=== PATIENT | female | born 1965 | race Caucasian/White ===

== ENCOUNTER 2020-03-21 08:46 | Day surgery (SDC) | payer BC, OTHER ==
[2020-03-21] MEDS ORDERED: Lactated Ringers 1,000 ML IV ONE (08:57)
[2020-03-21] MEDS ORDERED: Lactated Ringers 1,000 ML IV SCH (09:00)
[2020-03-21] MEDS ORDERED: DIPRIVAN 200 MG/20 ML IV ONE ×2 (10:35→11:02)
[2020-03-21] MEDS ORDERED: Xylocaine-Mpf 2% 5 Ml Vial ONE (10:35)
--- NOTE | 2020-03-21 12:53 | HP ---
HISTORY: This is a 54 year-old female who has been having significant left upper quadrant pain which has been increasing severity over the past month. It is worse with food. She is not having any GI bleed. She is not having any urinary symptoms. She has no hematuria either. Past medical history diabetes, hypertension, hyperlipidemia. PAST SURGICAL HISTORY: Knee surgery. Hysterectomy. Gallbladder surgery. Ankle surgery. MEDICATIONS: Lisinopril, Ozempic, occasional naproxen, Crestor, Metformin, insulin pump. ALLERGIES: PENICILLIN (HIVES). FAMILY HISTORY: Diabetes. SOCIAL HISTORY: No tobacco. No alcohol use PHYSICAL EXAMINATION: GENERAL: No acute distress. CVS: Regular rate and rhythm. PULMONARY: Nonlabored. ABDOMEN: Soft, mild tenderness to palpation left upper quadrant. No rebound. No guarding. EXTREMITIES: Normal. DIAGNOSIS: Left upper quadrant abdominal pain. PLAN: EGD.
--- NOTE | 2020-03-21 13:06 | OP ---
PROCEDURE DATE/TIME: 03/21/2020 1040 PREOPERATIVE DIAGNOSIS: Left upper quadrant abdominal pain. POSTOPERATIVE DIAGNOSIS: Gastritis. PROCEDURE: EGD with biopsy. PROCEDURE PERFORMED BY: Jhoana Shook M.D. ESTIMATED BLOOD LOSS: Minimal. ANESTHESIA: MAC. ESTIMATED BLOOD LOSS: Minimal. COMPLICATIONS: None. SPECIMEN: Antral biopsy. INDICATIONS FOR PROCEDURE: This is a patient who presents for EGD due to left upper quadrant abdominal pain. Risks, benefits, alternatives discussed with her preoperatively. Written H&P as well as dictated H&P and consent reviewed and confirmed. DESCRIPTION OF PROCEDURE: The patient was placed in the left lateral decubitus position. A complete time out was performed. The scope gently introduced into the mouth, oropharynx, down to the esophagus, stomach and duodenum. The duodenum was normal. The stomach had some edema most significant in the upper stomach as well as in the antrum. She also had some mild gastritis changes with erythema in the antrum. A possible old ulcer site was identified in the antrum which was completely healed and there was only a slight crater here consistent with a healed ulcer although this was extremely minimal. I did not see any active ulcers. There were no severe gastritis. I retroflexed although retroflexing due to the patient's stomach shape is very difficult. I was able to visualize a significant portion of the stomach. There was no obvious hiatal hernia. I was able to visualize the cardia but again the view here was slightly limited due to the very thick prominent folds and how the stomach was folded here made it difficult to view in each crevice but I did not see anything concerning here. Everything looked healthy. There were just prominent folds on itself. The scope was then unretroflexed. We took an antral biopsy to rule out Helicobacter pylori. The site looked hemostatic. We then carefully withdrew the scope. The hiatus was okay. There were no significant reflux changes. The remainder of the esophagus looked normal. The scope was completely withdrawn. The patient tolerated the procedure very well and no immediate complications. At this time I am going to place on some Protonix to treat her gastritis this may be the source of the left upper quadrant abdominal pain. However due to the severity of her pain I think we should get an upper GI and small bowel follow through and see if this will further define any other source of her pain because I do not think the EGD alone is explaining this. If this is negative then will consider a CT scan.
[2020-03-21 13:47] VITALS: BP 125/80; PULSE 70; O2SAT 97
== END 2020-03-21 12:35 | disposition home or self-care (01) ==
LOC: SDC 08:46
PROVIDERS: ATTEND Surgery
DX: K29.70 Gastritis, unspecified, without bleeding (principal); E11.9 Type 2 diabetes mellitus without complications; Z79.899 Other long term (current) drug therapy; Z79.4 Long term (current) use of insulin
CPT/HCPCS: 82947; J2704

== ENCOUNTER 2020-06-20 09:55 | Day surgery (SDC) | payer OTHER ==
[~2020-06-20 09:55] MED LIST: Lactated Ringers 1,000 ML IV ONE; Lactated Ringers 1,000 ML IV SCH
[2020-06-20] MEDS ORDERED: DIPRIVAN 200 MG/20 ML IV ONE ×2 (12:04→12:29)
[2020-06-20] MEDS ORDERED: Versed 2 MG/2 ML Injection ONE (12:04)
[2020-06-20] MEDS ORDERED: Lactated Ringers 1,000 ML IV ONE (12:38)
[2020-06-20 13:22] VITALS: O2SAT 96
[2020-06-20 13:32] VITALS: PULSE 66
[2020-06-20 13:48] VITALS: BP 126/76
--- NOTE | 2020-06-20 13:57 | HP ---
HISTORY OF PRESENT ILLNESS: The patient is here for colonoscopy. The patient has had left sided abdominal pain. She has had EGD and CT scan but continues to have some pain this is in the mid and lower left abdomen currently. PAST MEDICAL/SURGICAL HISTORY: As written and include hysterectomy, cholecystectomy, joint surgery, diabetes. She has a diabetes monitor in. MEDICATIONS: Medications and allergies are all reviewed and the medicines are read on the chart and confirmed. ALLERGIES: PENICILLIN. PHYSICAL EXAMINATION: GENERAL: No acute distress. CVS: Regular rate and rhythm. LUNGS: Nonlabored. ABDOMEN: Soft, mild tenderness to palpation left mid abdomen. No rebound. No guarding. Nondistended. EXTREMITIES: Normal. Left arm glucose monitor. DIAGNOSIS: Abdominal pain, diarrhea, constipation. PLAN: Colonoscopy.
[2020-06-20 14:50] LABS: 027 TOX PROD PRESUMPTIVE NEGATIVE (NEGATIVE); TOXIGENIC C. DIFF ORG NEGATIVE (NEGATIVE)
--- NOTE | 2020-06-20 14:51 | OP ---
PROCEDURE DATE/TIME: 06/20/2020 1205 PREOPERATIVE DIAGNOSIS: Left mid and left lower quadrant abdominal pain. POSTOPERATIVE DIAGNOSIS: Left mid and left lower quadrant abdominal pain plus pinpoint rectosigmoid inflammation and benign anal tag. PROCEDURE: Colonoscopy with cold biopsies and stool trap collection. PROCEDURE PERFORMED BY: Jhoana Shook M.D. SPECIMENS: 1) Right colon, left colon and rectum random biopsies; rule out microscopic colitis. 2) Pinpoint inflammation rectosigmoid biopsy. COMPLICATIONS: None. ESTIMATED BLOOD LOSS: None. ANESTHESIA: MAC. HISTORY: This is a 54 year-old female who presents for colonoscopy due to abdominal pain. Her pain is more in her left mid and left lower abdomen. She is also having diarrhea and constipation. Risks, benefits, alternatives have been discussed colonoscopy. Her consent has been obtained. H&P completed personally with the patient. DESCRIPTION OF PROCEDURE: She was brought to the endoscopy suite and laid in left lateral decubitus position. A complete time out performed. First a rectal exam was done. The patient has a very benign appearing small anal tag. The scope was then inserted, carefully advanced to the level of the cecum. The prep was satisfactory after copious irrigation. The patient did have quite a bit of thin and thick liquid stool as well as a couple solid particulate matter. We were however able to irrigate thoroughly and I did feel that the visualization was satisfactory and for purpose of the screening I think a five year surveillance would be reasonable given her prep. As we carefully withdrew, I insured visualization of the appendiceal orifice, the ileocecal valve. Her cecum was normal. Her right colon, transverse colon, left colon and sigmoid colon all were normal. I did take a stool trap sample and sent this for stool culture, Clostridium difficile, ova and parasite and then I also took biopsies with cold forceps in the right colon, left colon and in the rectum to rule out microscopic colitis. I did not see any diverticula. In the rectosigmoid region at approximately 15 cm, there was one solitary pinpoint area of inflammation this seems insignificant. I do not think this is the cause of her pain. I did biopsy this however and sent it to pathology of her pinpoint rectosigmoid inflammation. All biopsies were hemostatic. We then carefully withdrew the scope. The rectum was visualized and was normal. She has normal appearing hemorrhoidal tissue. On retroflex view this is normal and as we withdraw we do see the benign appearing anal tag and this is not concerning. Plan for another colonoscopy in five years. She will also follow up with me for her biopsy results in my office.
== END 2020-06-20 14:02 | disposition home or self-care (01) ==
LOC: SDC 09:55
PROVIDERS: ATTEND Surgery
DX: R10.32 Left lower quadrant pain (principal); K63.89 Other specified diseases of intestine; R19.7 Diarrhea, unspecified; K59.00 Constipation, unspecified; K64.4 Residual hemorrhoidal skin tags; E11.9 Type 2 diabetes mellitus without complications
CPT/HCPCS: 82947; 87045; 87046; 87328; 87329; 87493; J2250; J2704

== ENCOUNTER 2021-05-22 10:09 | Day surgery (SDC) | payer OTHER ==
[2021-05-22] MEDS ORDERED: Lactated Ringers 1,000 ML IV SCH (10:30)
[2021-05-22] MEDS ORDERED: Lactated Ringers 1,000 ML IV ONE (10:34)
[2021-05-22] MEDS ORDERED: DIPRIVAN 200 MG/20 ML IV ONE (11:21)
[2021-05-22] MEDS ORDERED: Xylocaine-Mpf 2% 5 Ml Vial ONE (11:21)
[2021-05-22] MEDS ORDERED: Versed 2 MG/2 ML Injection ONE (11:21)
[2021-05-22] MEDS ORDERED: Zofran 4 MG/2 ML VIAL IV STA (12:25)
--- NOTE | 2021-05-22 12:56 | OP ---
PROCEDURE DATE/TIME: 05/22/2021 1123 PREOPERATIVE DIAGNOSIS: Left upper quadrant left flank pain. POSTOPERATIVE DIAGNOSES: 1) Left upper quadrant left flank pain. 2) Mild gastroesophageal reflux disease. 3) Small hiatal hernia, stable. 4) Normal stomach. 5) Pallor of the duodenal mucosa. PROCEDURE: EGD with biopsies. PROCEDURE PERFORMED BY: Jhoana Shook M.D. ESTIMATED BLOOD LOSS: Minimal. ANESTHESIA: MAC. COMPLICATIONS: None. SPECIMEN: 1) Gastric antral biopsy; rule out Helicobacter pylori. 2) Duodenal biopsy; rule out celiac disease. HISTORY: This is a 55-year-old female who presents for EGD with biopsies. She has also seen GI as she was having some left upper quadrant pain which radiated towards her left flank. We are going to be taking a look at her stomach as well as biopsying her duodenum. Risks, benefits, alternatives have been discussed. H&P and consent all reviewed with her and confirmed. All questions answered. DESCRIPTION OF PROCEDURE: She was then brought back to the endoscopy suite, laid in the left lateral decubitus position. A complete time out performed. The scope gently introduced into the mouth, oropharynx, down to the esophagus, stomach and duodenum. The scope was advanced to approximately the level of the mid third portion of the duodenum. The entire duodenum had pallor otherwise and the mucosa was normal except for the pallor. The scope was then carefully withdrawn and a close look at the duodenum was done. During this we did multiple biopsies throughout D3, D2 and D1 sent these all to pathology for celiac testing. All sites were hemostatic. We then withdrew the scope back into the stomach. I biopsied the antrum. This site was hemostatic this was sent to pathology. Overall, her stomach looked normal. There was no significant inflammation. She had a stable small hiatal hernia. It is about 2 cm. The scope is then further withdrawn into the distal esophagus. Her mucosa here looked normal. She had very mild active reflux only at the distal esophagus and her hiatal hernia is small again unchanged. Her gastroesophageal junction is around 39 cm. The scope was then further removed. The remainder of the esophagus was normal. The patient tolerated the procedure well. No immediate complications. She needs an EGD on an as needed basis and will be following up with her GI doctor as well as myself for her final pathology results and further care.
[2021-05-22 14:42] VITALS: BP 118/76; PULSE 72; O2SAT 94
== END 2021-05-22 14:50 | disposition home or self-care (01) ==
LOC: SDC 10:09
PROVIDERS: ATTEND Surgery
DX: R10.12 Left upper quadrant pain (principal); K21.9 Gastro-esophageal reflux disease without esophagitis; K44.9 Diaphragmatic hernia without obstruction or gangrene; E11.9 Type 2 diabetes mellitus without complications; Z79.899 Other long term (current) drug therapy
CPT/HCPCS: 82947; J2250; J2405; J2704